=== PATIENT | male | born 1995 | race Caucasian/White ===

== ENCOUNTER → 2018-04-23 | Outpatient (CLI) | payer OTHER ==
--- NOTE | 2018-04-23 15:21 | XR ---
EXAMINATION TYPE: XR shoulder complete RT DATE OF EXAM: 04/23/2018 CLINICAL HISTORY: pain TECHNIQUE: Three views of the right shoulder are obtained. COMPARISON: None FINDINGS: There is no acute fracture/dislocation evident. The acromioclavicular and glenohumeral torrey int spaces appear within normal limits. The visualized ribs are intact and unremarkable. IMPRESSION: 1. There is no acute fracture or dislocation. ICD 10 NO FRACTURE, INITIAL EVALUATION
== END | disposition home or self-care (01) ==
LOC: RADXRMAIN 15:04
PROVIDERS: ATTEND Physician Assistant
DX: M25.511 Pain in right shoulder (principal)

== ENCOUNTER → 2018-05-26 | Outpatient (CLI) | payer OTHER ==
--- NOTE | 2018-05-26 22:39 | MR ---
MRI CERVICAL SPINE: CLINICAL HISTORY: Cervicalgia per order. Shooting pain in neck and shoulders for 2 months causing brandt n or weakness into right arm per patient. TECHNIQUE: Multiplanar, multisequence imaging of the cervical spine is performed without IV contrast. COMPARISON: None. FINDINGS: Sagittal images of the cervical spine show the craniocervical junction to appear within nor mal limits. The cervical and upper thoracic spinal cord is normal in course, caliber, and signal. V ertebral alignment is anatomic. The vertebral body and intravertebral disk heights are normal. Post erior disc herniation C5-C6 level as seen on sagittal images. The bone marrow signal intensity is wit hin normal limits. No significant spurring is seen. Axial images show C2-C3, C3-C4, and C4-C5 levels all 2 appear within normal limits. Axial images at C5-C6 level show focal right paracentral disc protrusion effacing the anterior thecal sac on axial image 26, bilateral neuroforamina are patent. Axial images at C6-C7 and C7-T1 levels are felt within normal limits. IMPRESSION: Posterior disc herniation C5-C6 level effaces the anterior thecal sac.
== END | disposition home or self-care (01) ==
LOC: RADMRIMAIN 19:40
PROVIDERS: ATTEND Orthopaedic Surgery
DX: M50.222 Other cervical disc displacement at C5-C6 level (principal)
CPT/HCPCS: 72141

== ENCOUNTER → 2018-06-25 | Outpatient (CLI) | payer OTHER ==
[2018-06-25 14:03] VITALS: BP 147/79; PULSE 78; RESP 16
--- NOTE | 2018-06-25 14:46 | P.PAINPG ---
Subjective Progress Note Date: 06/25/18 Principal diagnosis: Cervical herniated nucleus pulposus, myofascial pain This a very pleasant 23-year-old man who was referred to our clinic for treatment of his right trapezius pain. 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 He does report having some numbness in his arm down to approximately his elbow however this has completely subsided. He denies any neck pain at this time. He complains of pain in his right superior trapezius area. He has attempted heat as well as ice and massage to help control this. He has not been to physical therapy. He does utilize marijuana. Objective - Vital Signs Vital signs: Vital Signs Temp Pulse 78 06/25/18 13:49 Resp 16 06/25/18 13:49 BP 147/79 06/25/18 13:49 Pulse Ox 98 06/25/18 13:49 Intake & Output 06/24/18 06/25/18 06/25/18 18:59 06:59 18:59 Weight 72.575 kg - Exam General: The patient is alert and oriented. Patient is not sedated Patient answers all question appropriately. Cardiac: Heart is regular in rate and rhythm Respiratory: Clear to auscultation. No audible wheezes. Abdomen: Soft nontender nondistended. Muscle skeletal: Strength is normal bilaterally in the upper extremities. He has good range of motion for neck flexion, extension, side bending and side turning. None of these maneuvers produce any radicular symptoms. He does have a large palpable trigger point in the upper midportion of the right trapezius. Assessment and Plan (1) Myofascial pain syndrome, cervical Narrative/Plan: Plan of Care 1. Medications: I recommended that the patient utilize heat and ice as well as occasional anti-inflammatory medications to help with this pain. 2. Interventions: We will schedule patient for right trapezius trigger point injection 3. Referrals: We will consider referring patient to physical therapy in the future. 4. Testing: None 5. Follow-up: Right trapezius trigger point injection Current Visit: Yes Status: Acute Code(s): M79.18 - MYALGIA, OTHER SITE SNOMED Code(s): 620614679 (2) Herniated nucleus pulposus Current Visit: Yes Status: Acute Code(s): UOB1841 - SNOMED Code(s): 51165325 PQRS Measure Charge Sheet Measure #130: Documentation of Current Meds in Medical Chart: Patient not eligible for medications to be documented Measure #226: Tobacco Use: Screen & Cessation Intervention: Pt not a tobacco user Measure #111: Pneumonia Vaccination: Pneumococcal vaccine NOT administered or previously given Measure #47: Advance Care Plan: Advance care planning discussed & documented, pt chose/unable to give Measure #412: Opioid Treatment Agreement: No documentation of signed opioid treatment agreement Measure #408: Opioid Therapy Follow-up Evaluation: Patient had NO f/u eval minimum every 3 months during opioid therapy Measure #317: Preventitive Care & Scrn High Bld Press & F/U: Normal blood pressure, f/u not required Measure #128: Body Mass Index (BMI) Screening & Follow-up: BMI documented within normal parameters Measure #131: Pain Assessment & Follow-up: Pain positive & plan documented Measure #431: Unhealthy Alcohol Use Preventative Care & Scrn: Patient not identified as an unhealthy alcohol user PQRS Narrative: Smoking Status Current every day smoker Do You Want the Pneumonia No Vaccine AT THIS TIME? Blood Pressure 147/79 Pain Intensity [Right Upper 3 Shoulder] Scale Used Numeric (1 - 10) Hx Alcohol Use (MH) Yes: social Home Medications: Ambulatory Orders Ibuprofen 200 mg PO TID PRN 06/25/18 Controlled Substance Measures - Controlled Substance Measures Is patient prescribed a controlled substance at discharge?: No
== END ==
LOC: PNWHC3 13:25
PROVIDERS: ATTEND Pain Medicine Pain Medicine
DX: M79.18 Myalgia, other site (principal); M50.20 Other cervical disc displacement, unspecified cervical region
CPT/HCPCS: 99201

== ENCOUNTER → 2018-06-30 | Day surgery (SDC) | payer OTHER ==
[2018-06-27 11:53] VITALS: BMI 22.3
[~2018-06-30] MED LIST: SODIUM CHLORIDE 0.9% 500 ML 500 ML IV SCH
[2018-06-30 10:20] VITALS: RESP 16; TEMP 98.1
--- NOTE | 2018-06-30 10:30 | P.PCN ---
Date of Procedure: 06/30/18 Preoperative Diagnosis: Trigger point right trapezius Postoperative Diagnosis: same Procedure(s) Performed: right trigger point injection of trapezius and paraspinal muscle Anesthesia: none Description of Procedure: Procedure: right paraspinal and trapezius muscle trigger point injection 3 Preoperative diagnosis: Trigger point postoperative diagnosis same Indication: Trigger points Procedure Patient was prepped in the preop area. The area was cleansed with alcohol swabs. Palpation over the trigger point was identified in the right trapezius. 25-gauge needle was inserted into the trigger point. After negative aspiration 0.5% ropivacaine 3 mL was injected into the trigger point in the right trapezius. Attention was then turned superior to the top the trapezius muscle and 3 mL of 0.5% Marcaine was also injected that level. Attention was then turned to the right paraspinal muscles over the upper thoracic area with 3 mL of 0.5% Marcaine was also injected to trigger point that level. Needle was removed. Hemostasis was achieved with a Band-Aid Complications: None Patient will return to clinic in 2-4 weeks and follow-up is advised the patient to continue working and using his arm back freely
[2018-06-30 10:40] VITALS: BP 130/61; PULSE 65
== END ==
LOC: ORPAIN 09:55
PROVIDERS: ATTEND Hospitalist
DX: M79.18 Myalgia, other site (principal); M50.20 Other cervical disc displacement, unspecified cervical region; F17.200 Nicotine dependence, unspecified, uncomplicated
CPT/HCPCS: 20553

== ENCOUNTER → 2019-05-16 | Outpatient (CLI) | payer OTHER ==
--- NOTE | 2019-05-17 16:37 | CT ---
EXAMINATION TYPE: CT chest wo con DATE OF EXAM: 05/16/2019 COMPARISON: HISTORY: cough, asthma CT DLP: 213.7 mGycm. Automated Exposure Control for Dose Reduction was Utilized. TECHNIQUE: CT scan of the thorax is performed without IV contrast. FINDINGS: Lack of contrast could compromise sensitivity. LUNGS: The lungs are grossly clear, there is no concerning parenchymal mass or nodule identified. T here is no pleural effusion or pneumothorax seen. The tracheobronchial tree is patent. MEDIASTINUM: Lack of IV contrast is noted to limit evaluation for mediastinal and especially hilar ad enopathy. There are no definitive greater than 1 cm hilar or mediastinal lymph nodes. No cardiomega ly or pericardial effusion is seen. OTHER: Increased breast tissue is noted on the left as compared to right. There areas of increased at tenuation about the left kidney which is incompletely evaluated. IMPRESSION: Noncontrast exam. Asymmetric breast tissue, correlate clinically. Possible proteinaceous cysts involving the left kidney peripherally. This is incompletely evaluated.
== END | disposition home or self-care (01) ==
LOC: RADCTMAIN 10:50
PROVIDERS: ATTEND Internal Medicine Pulmonary Disease
DX: R93.7 Abnormal findings on diagnostic imaging of other parts of musculoskeletal system (principal); J45.909 Unspecified asthma, uncomplicated
CPT/HCPCS: 71250

== ENCOUNTER → 2020-02-10 | Outpatient (CLI) | payer OTHER | END | disposition home or self-care (01) | LOC: LABWHC1 13:31 | PROVIDERS: ATTEND Family Medicine | DX: Z20.828 Contact with and (suspected) exposure to other viral communicable diseases (principal) | CPT/HCPCS: U0003; C9803 ==

== ENCOUNTER → 2020-02-24 | Outpatient (CLI) | payer OTHER | END | disposition home or self-care (01) | LOC: LABWHC1 09:35 | PROVIDERS: ATTEND Family Medicine | DX: Z20.828 Contact with and (suspected) exposure to other viral communicable diseases (principal) | CPT/HCPCS: U0003; C9803 ==